=== PATIENT | female | born 1995 | race Caucasian/White ===

== ENCOUNTER 2021-02-28 19:40 | Emergency (ER) | payer OTHER ==
--- NOTE | 2021-02-28 19:50 | ED Physician Documentation ---
History of Present Illness - Stated complaint Stated Complaint: NO TASTE/SMELL, BODYACHES - History obtained from History obtained from: Patient (Starting yesterday she is developed nasal congestion, body aches fatigue and lack of taste and smell. She is not immunized against Covid. No known sick contacts.) Review of Systems Constitutional: reports: Chills, Myalgias, Fatigue Nose: reports: Rhinorrhea / runny nose Cardiac: denies: Chest pain / pressure, Palpitations Respiratory: denies: Dyspnea PD PAST MEDICAL HISTORY - Past Medical History Past Medical History: No - Allergies Allergies/Adverse Reactions: Allergies Allergy/AdvReac Type Severity Reaction Status Date / Time Penicillins Allergy Unknown Verified 02/28/21 19:46 - Living Situation Living Situation: reports: With spouse/s.o. PD ED PE NORMAL - Vitals Vital signs reviewed: Yes - General General: Alert and oriented X 3, No acute distress - Derm Derm: No rash - Neuro Neuro: Alert and oriented X 3, Normal speech Results - Vitals Vitals: Vital Signs - 24 hr 02/28/21 19:46 Temperature 36.9 C Heart Rate 90 Respiratory 16 Rate Blood Pressure 140/80 H O2 Saturation 100 Oxygen O2 Source Room air Departure - Departure Disposition: 01 Home, Self Care Clinical Impression: Viral syndrome Condition: Good Record reviewed to determine appropriate education?: Yes Instructions: ED Viral Syndrome Comments: You have a Covid test pending. You need to self quarantine until the result is done and negative. Do not leave your house. Do not get near anybody. The results should be done in 48 to 72 hours. We will call with a positive result, the fastest way to get a negative result for confirmation though is to go to the hospital website at [email or web address], click on the my [facility] tab and sign up for the patient portal. If any friends or family get sick and would like to have a Covid test done, but do not have signs or symptoms that would necessitate being hospitalized, we encourage testing through our coronavirus swabbing station, call [phone] to schedule an appointment. Forms: Activity restrictions Discharge Date/Time: 02/28/21 19:56
[2021-02-28 19:55] VITALS: BP 140/80
== END 2021-02-28 19:56 | disposition home or self-care (01) ==
LOC: ED 19:40
DX: B34.9 Viral infection, unspecified (principal); Z20.822 Contact with and (suspected) exposure to COVID-19
CPT/HCPCS: 99282; 99283

== ENCOUNTER 2021-03-12 19:07 | Emergency (ER) | payer OTHER ==
[2021-03-12 19:18] VITALS: BP 150/117
--- NOTE | 2021-03-12 20:02 | ED Physician Documentation ---
PD HPI URI - Stated complaint Stated Complaint: COUGH,VOMITING - Chief complaint Chief Complaint: Resp - History obtained from History obtained from: Patient - History of Present Illness Timing - onset: How many weeks ago (2) Timing details: Gradual onset, Intermittant Associated symptoms: Dry cough. No: Fever, Sinus pain, Sore throat Improves by: Nothing Worsened by: Other (no exacerbating factors) Recently seen: Emergency Dept - Additional information Additional information: c/o "lingering cough" (per patient), has had nonproductive cough x 2 weeks. She was T+R from this ED 12 days ago (02/28), had COVID swab which resulted negative. She is NOT COVID vaccinated. Denies fever. Has appointment with PMD upcoming (03/18). Review of Systems Constitutional: denies: Fever, Chills, Sweats Cardiac: reports: Reviewed and negative Respiratory: reports: Cough. denies: Dyspnea, Hemoptysis, Wheezing GI: reports: Reviewed and negative : denies: Now EGA Musculoskeletal: denies: Extremity swelling PD PAST MEDICAL HISTORY - Past Medical History Past Medical History: No - Present Medications Home Medications: Ambulatory Orders Medication Instructions Recorded Confirmed Benzonatate [Tessalon] 200 mg PO TID PRN #14 cap 03/12/21 guaiFENesin/CODEINE [Robitussin AC] 10 ml PO Q6H PRN #100 ml 03/12/21 - Allergies Allergies/Adverse Reactions: Allergies Allergy/AdvReac Type Severity Reaction Status Date / Time Penicillins Allergy Unknown Verified 03/12/21 19:18 - Living Situation Living Arrangement: reports: At home PD ED PE NORMAL - Vitals Vital signs reviewed: Yes - General General: Alert and oriented X 3, No acute distress, Well developed/nourished, Other (occasional dry/nonproductive cough during H+P) - Neck Neck: Supple, no meningeal sign - Cardiac Cardiac: RRR, No murmur, No gallop, No rub - Respiratory Respiratory: No respiratory distress, Clear bilaterally Results - Vitals Vitals: Vital Signs - 24 hr 03/12/21 19:13 Temperature 36.9 C Heart Rate 105 H Respiratory 24 Rate Blood Pressure 150/117 H O2 Saturation 100 Oxygen O2 Source Room air - Rads (name of study) chest xray Radiology: Prelim report reviewed, See rad report PD MEDICAL DECISION MAKING - ED course Complexity details: reviewed results, re-evaluated patient, considered differential, d/w patient ED course: T+R from this ED 12 days ago for URI symptoms, returns due to "lingering cough" (per patient). she is well appearing and lungs are clear, but given that this is a return visit for ongoing symptoms, CXR is reasonable at this point. CXR does not demonstrate concerning process such as focal infiltrate or pneumothorax. COVID swab obtained, results anticipated to return in approximately 2 days. She is given tessalon perles and robitussin AC in ED with prescriptions for same transmitted to [facility] pharmacy in [place]. I am prescribing a short course of short-acting opioid pain medication for this patient. I have reviewed the patients [employer] and no concerning findings were noted. I have discussed that the opioids are for short term therapy only, and will not be refilled from the ED. Departure - Departure Disposition: 01 Home, Self Care Clinical Impression: Upper respiratory tract infection Qualifiers: URI type: unspecified URI Qualified Code(s): J06.9 - Acute upper respiratory infection, unspecified Condition: Good Instructions: ED URI Viral Follow-Up: CHERYL ETIENNE PA-C [Primary Care Provider] - Prescriptions: guaiFENesin/CODEINE [Robitussin AC] 10 ml PO Q6H PRN #100 ml PRN Reason: Cough Benzonatate [Tessalon] 200 mg PO TID PRN #14 cap PRN Reason: Cough Comments: prescriptions for tesselon perles and robitussin AC (robitssun with codeine) have been electronically submitted to [facility] pharmacy in [place] You have a COVID test pending. You need to self-quarantine until the result is done and negative. Do not leave your house. Do not get near anybody. The results should be done in 48 to 72 hours. We will call with a positive result; the fastest way to get a negative result for confirmation though is to go to the hospital website at [email or web address], click on the [email or web address] tab and sign up for the patient portal. If any friends or family get sick and would like to have a COVID test done, but do not have signs or symptoms that would necessitate being hospitalized, we encourage testing through our coronavirus swabbing station, call [phone] to schedule an appointment I am prescribing a short course of narcotic pain medication for you. These are potentially dangerous and addictive medications that should be used carefully. These medications may constipate you. Take an spkm-wao-msqviif stool softener (docusate) twice daily with plenty of water while taking these medications. If you go 24 hours without a bowel movement, take nzgb-oxy-qagllgc miralax, per package instructions. Do not drink or drive while taking these medications. If you received narcotic or sedating medications while in the emergency department, do not drive for 24 hours. Store this medication in a safe, secure place and out of reach of children. It is a violation of federal law to give or sell this medication to another person or to use in a manner other than prescribed. The ED will not refill narcotic prescriptions, including prescriptions lost or stolen. To dispose of unwanted medications: 1. [facility] at [address] in [place] has a medication drop box. They accept prescription medications (in pill form) Monday through Monday 9:00 a.m. to 5:00 p.m. 2. The [facility] [employer] accepts prescription medications (in pill form only) for disposal year round. Call for more information. 3. Contact the [facility] for the next [facility] sponsored prescription drug collection event. , [phone], or [phone]; Discharge Date/Time: 03/12/21 20:59
[2021-03-12] MEDS ORDERED: BENZONATATE 100 MG CAPSULE PO STA (20:17)
[2021-03-12] MEDS ORDERED: guaiFENesin/CODEINE 5 ML UDC PO STA (20:17)
--- NOTE | 2021-03-12 20:48 | XRAY Report ---
PROCEDURE: Chest 2 View X-Ray INDICATIONS: persistent cough TECHNIQUE: 2 view(s) of the chest. COMPARISON: None. FINDINGS: Surgical changes and devices: None. Lungs and pleura: No pleural effusions or pneumothorax. Lungs are clear. Mediastinum: Mediastinal contours are normal. Heart size is normal. Bones and chest wall: No suspicious bony abnormalities. Soft tissues appear unremarkable. IMPRESSION: No acute process. Reviewed by: Jerry Yañez MD on 03/12/2021 8:47 PM PDT Approved by: Jerry Yañez MD on 03/12/2021 8:47 PM PDT Station ID: [id number]
== END 2021-03-12 20:59 | disposition home or self-care (01) ==
LOC: ED 19:07
DX: J06.9 Acute upper respiratory infection, unspecified (principal); Z20.822 Contact with and (suspected) exposure to COVID-19
CPT/HCPCS: 71046; 87635; 99283; 99284; A9270

== ENCOUNTER 2023-03-07 12:21 | Outpatient (CLI) | payer OTHER ==
--- NOTE | 2023-03-07 17:17 | Ultrasound Report ---
PROCEDURE: OB First Trimester w/TV INDICATIONS: POSITIVE TEST OUTSIDE/PRIOR DATING DATA: Last menstrual period (LMP): 01/08/2023. LMP-based estimated date of delivery (YADI): 10/15/2023. First dating scan (date and location): 03/07/2023. Estimated date of delivery (YADI) from first dating scan: 10/15/2023. TECHNIQUE: Real-time scanning was performed of the fetus and maternal pelvic organs, with image documentation. Endovaginal scanning was also performed to better visualize the fetus and maternal ovaries. COMPARISON: None. FINDINGS: Intrauterine gestational sac present. Embryo: There is an IUP with a pole. Based on the crown-rump length, the estimated gestational age is 8 weeks 2 days, corresponding to ultrasound YADI 10/14/2022. Heart rate: heart tone is present with heart rate 158 bpm. Other: No perigestational fluid collection. Measurement variability in dating: +/- 4 weeks by LMP, +/- 7 days by mean sac diameter (use before 6 weeks gestation if crown-rump length not able to be measured), +/- 5 days by crown-rump length (6-12 weeks gestation). Maternal organs: Ovaries appear within normal limits. There is a 1.8 x 1.5 x 1.7 cm cyst in the left ovary, most likely a corpus luteum. IMPRESSION: 1. There is a single living IUP with the estimated gestational age 8 weeks 2 days, corresponding to u ltrasound YADI 10/15/2023. Ultrasound dating concordant with clinical dating. 2. A 1.8 cm cyst in the left ovary, most likely a corpus luteum. Reviewed by: Melania Banks MD on 03/07/2023 5:16 PM PDT Approved by: Melania Banks MD on 03/07/2023 5:16 PM PDT Station ID: [id number]
== END 2023-03-07 12:22 | disposition home or self-care (01) ==
LOC: DI 12:21
PROVIDERS: ATTEND Nurse Practitioner
DX: O34.81 Maternal care for other abnormalities of pelvic organs, first trimester (principal); N83.202 Unspecified ovarian cyst, left side; Z3A.08 8 weeks gestation of pregnancy

== ENCOUNTER 2023-05-03 16:24 | Emergency (ER) | payer OTHER ==
[2023-05-03 16:46] VITALS: BP 100/60; O2SAT 100
--- NOTE | 2023-05-03 18:09 | XRAY Report ---
PROCEDURE: Hand 3 View RT INDICATIONS: Trauma TECHNIQUE: 3 views of the hand(s) acquired. COMPARISON: None. FINDINGS: Bones: No fractures or dislocations. No suspicious bony lesions. Soft tissues: No suspicious soft tissue calcifications or masses. IMPRESSION: No acute bony abnormality. Reviewed by: Ab Salazar on 05/03/2023 6:08 PM [facility] Approved by: Ab Salazar on 05/03/2023 6:08 PM [facility] Station ID: [id number]
--- NOTE | 2023-05-03 18:31 | ED Physician Documentation ---
History of Present Illness - Stated complaint Stated Complaint: DOG BITE R HAND - Chief complaint Chief Complaint: Laceration - History obtained from History obtained from: Patient, Family - History of Present Illness Timing: Today Pain level max: 3 Pain level now: 3 - Additonal information Additional information: Patient is a 27 female who presents to the emergency department with a dog bite to the right hand. It was her dog, dog is a great Ian. She is approximately 16 weeks . There is a puncture wound to the dorsum of the right hand as well as to the palm. Neurovascular intact. No numbness or tingling. No deformity. Review of Systems Constitutional: denies: Fever GI: denies: Vomiting : reports: Now EGA (16 weeks). denies: Vaginal bleeding PD PAST MEDICAL HISTORY - Past Medical History Past Medical History: Yes Psych: ADD/ADHD - Past Surgical History Past Surgical History: No - Present Medications Home Medications: Ambulatory Orders Medication Instructions Recorded Confirmed Amox/Clav 875/125 [Augmentin] 1 tab PO Q12H #14 tablet 05/03/23 Pnv 119/Iron Fum/Folic Acid 1 each PO DAILY 05/03/23 05/03/23 [ 19 Tablet] - Allergies Allergies/Adverse Reactions: Allergies Allergy/AdvReac Type Severity Reaction Status Date / Time clarithromycin Allergy Anaphylaxis Verified 05/03/23 18:27 - Social History Does the pt smoke?: No Smoking Status: Never smoker Does the pt drink ETOH?: No Does the pt have substance abuse?: No - Immunizations Immunizations are current?: Yes - POLST Patient has POLST: No PD ED PE NORMAL - Vitals Vital signs reviewed: Yes - General General: Alert and oriented X 3, No acute distress - HEENT HEENT: Moist mucous membranes - Neck Neck: Supple, no meningeal sign - Cardiac Cardiac: RRR - Respiratory Respiratory: No respiratory distress, Clear bilaterally - Abdomen Abdomen: Soft, Non tender - Derm Derm: Warm and dry - Neuro Neuro: Alert and oriented X 3 - Psych Psych: Normal mood, Normal affect PD ED PE EXPANDED - Extremities ABE UE/Hands Visual: 1 - laceration (1 cm, subcutaneous, neurovascular intact.) 2 - laceration Results - Vitals Vitals: Vital Signs - 24 hr 05/03/23 16:32 Temperature 36.5 C Heart Rate 75 Respiratory 18 Rate Blood Pressure 100/60 O2 Saturation 100 Oxygen O2 Source Room air - Rads (name of study) Right hand x-ray Relevant Findings:: Final report received, See rad report Procedures - Laceration (location) Right hand Length in cm: 1 Wound type: Linear, Clean Neurovascular status: Sensory intact, Motor intact, Vascular intact Tendon involvement: Tendon intact Anesthesia: Lidocaine 1% Wound preparation: Irrigated copiously NS Skin layer closure: Nylon, Interrupted, Size #-0 - enter number (4), Sutures - enter # (2) Other: Patient tolerated well, No complications, Neurovascular intact PD Medical Decision Making - ED course Complexity details: considered differential, d/w patient ED course: 0.3 cm, linear. Laceration on the dorsum of the hand was repaired. Tolerated well. No complications. Tetanus up-to-date. Patient does not want any closure on the palmar wound. The wounds were cleansed and bandaged. Patient initially stated she was allergic to penicillin but clarified with her mother that it was clarithromycin that she is allergic to. Therefore we will place her on Jan. Patient counseled regarding signs and symptoms for which I believe and urgent re-evaluation would be necessary. Patient with good understanding of and agreement to plan and is comfortable going home at this time This document was made in part using voice recognition software. While efforts are made to proofread this document, sound alike and grammatical errors may occur. Departure - Departure Disposition: 01 Home, Self Care Clinical Impression: Dog bite Qualifiers: Encounter type: initial encounter Qualified Code(s): W54.0XXA - Bitten by dog, initial encounter Hand laceration Qualifiers: Encounter type: initial encounter Foreign body presence: without foreign body Laterality: right Qualified Code(s): S61.411A - Laceration without foreign body of right hand, initial encounter Condition: Good Instructions: ED Bite Dog, ED Laceration Hand Follow-Up: your,doctor in 1 week [Other] Prescriptions: Amox/Clav 875/125 [Augmentin] 1 tab PO Q12H #14 tablet Comments: Your prescription was sent to [facility] in [place]. Your x-ray does not show any acute abnormalities today. There is no evidence of fracture. Please follow-up with your doctor for further care. Your sutures should be removed in about 7 days. Take all antibiotics until gone. Forms: PCP List Discharge Date/Time: 05/03/23 18:45
== END 2023-05-03 18:45 | disposition home or self-care (01) ==
LOC: ED 16:24
DX: O9A.212 Injury, poisoning and certain other consequences of external causes complicating pregnancy, second trimester (principal); Z3A.16 16 weeks gestation of pregnancy; S61.451A Open bite of right hand, initial encounter; W54.0XXA Bitten by dog, initial encounter
CPT/HCPCS: 12001; 99283

== ENCOUNTER 2023-05-30 15:47 | Outpatient (CLI) | payer OTHER ==
--- NOTE | 2023-05-31 13:29 | Ultrasound Report ---
PROCEDURE: OB 14+ Weeks INDICATIONS: SUPERVISION OF OUTSIDE/PRIOR DATING DATA: Last menstrual period (LMP): 01/08/2023. LMP-based estimated date of delivery (YADI): 10/15/2023. First dating scan (date and location): 03/07/2023. Estimated date of delivery (YADI) from first dating scan: 10/15/2023. The below data below was generated using the working YADI of 10/15/2023 TECHNIQUE: Real-time scanning was performed of the fetus, with image documentation and biometric measurements. Endovaginal scanning: Not performed. COMPARISON: 03/07/2023 FINDINGS: General: A single living intrauterine gestation is present. Presentation: Vertex, spine up Placenta: Placental position is posterior, without previa. Amniotic fluid index: 13.5 cm, largest pocket is 3.6 cm. Normal for gestational age. heart rate: 148 beats per minute. Maternal cervical canal: Closed and 3.8 cm long; normal length is 2.5 cm or more. biometrics: Biparietal diameter: 4.6 cm, 20 weeks 0 days, 37th percentile Head circumference: 17.7 cm, 20 weeks 1 day, 38th percentile Abdominal circumference: 14.8 cm, 20 weeks 0 days, 36th percentile Femur length: 3.1 cm, 19 weeks 4 days, 18th percentile Estimated gestational age from initial scan: 20 weeks 2 days. Composite gestational age from present scan: 19 weeks 6 days Estimated weight and percentile: 317 g, 23rd percentile Measurement variability for biometric dating: +/- 10 days from 12-20 weeks gestation, +/- 2 weeks fro m 20-30 weeks gestation, +/- 3 weeks for 30 weeks gestation or later. Anatomic survey: Suboptimal images due to position and maternal body habitus. Neuro: Ventricles are non-dilated at less than 10 mm. Cisterna magna is normal at 3-11 mm. Cerebel lum is normal in size and morphology. Nuchal skin fold: Normal at less than 6 mm between 14-20 weeks gestational age. Face: Facial structures are not seen.. Spine: No evidence for spina bifida. Heart: 4-chambered heart is seen. Ventricular outflow tracts are not seen. Diaphragm: Diaphragm is intact. Stomach: Left-sided stomach is present. Kidneys: No hydronephrosis. Normal is less than 5 mm in 2nd trimester, less than 7 mm in 3rd trimester. Cord: 3-vessel cord has orthotopic insertion and marginal placental insertion measuring 1.6 cm away from the lateral edge. Bladder: Normal in size. Extremities: All 4 extremities are difficult to identify given position IMPRESSION: 1. Single living intrauterine with appropriate growth. 2. Estimated weight at the 23rd percentile. 3. Several normal structures were not able to be identified due to position and maternal body h abitus. Recommend follow-up to complete the anatomic survey. 4. Posterior placenta with marginal cord insertion. Reviewed by: Bijal Sullivan MD on 05/31/2023 1:27 PM PST Approved by: Bijal Sullivan MD on 05/31/2023 1:27 PM PST Station ID: [id number]
== END 2023-05-30 15:48 | disposition home or self-care (01) ==
LOC: DI 15:47
PROVIDERS: ATTEND Obstetrics & Gynecology
DX: Z34.92 Encounter for supervision of normal pregnancy, unspecified, second trimester (principal)

== ENCOUNTER 2023-06-07 06:45 | Outpatient (CLI) | payer OTHER ==
--- NOTE | 2023-06-07 11:10 | Ultrasound Report ---
PROCEDURE: OB Follow up INDICATIONS: SUPERVISION OF OUTSIDE/PRIOR DATING DATA: Last menstrual period (LMP): 01/08/2023. LMP-based estimated date of delivery (YADI): 10/15/2023. First dating scan (date and location): 03/07/2023. Estimated date of delivery (YADI) from first dating scan: 10/15/2023. TECHNIQUE: Real-time scanning was performed of the fetus, with image documentation and biometric measurements. COMPARISON: 05/30/2023 FINDINGS: General: A single living intrauterine gestation is present. Presentation: Vertex Placenta: Placental position is posterior, without previa. Amniotic fluid index: 14.1 cm, within normal limits for gestational age. heart rate: 140 beats per minute. Maternal cervical canal: 3.6 cm long; normal length is 2.5 cm or more. Estimated gestational age is 21 weeks and 3 days currently. Marginal cord origin about 1.4 cm from the edge again seen. Extremities are seen. Facial structures, including nose and lips and profile view were seen. The outflow tracts were seen. IMPRESSION: Extremities, facial structures, and cardiac outflow tract are seen. No significant abnor malities identified on routine anatomic survey in conjunction with the prior study. Normal fluid. Reviewed by: Pepito Nick MD on 06/07/2023 11:09 AM PST Approved by: Pepito Nick MD on 06/07/2023 11:09 AM PST Station ID: [id number]
== END 2023-06-07 06:46 | disposition home or self-care (01) ==
LOC: DI 06:45
PROVIDERS: ATTEND Obstetrics & Gynecology
DX: Z34.92 Encounter for supervision of normal pregnancy, unspecified, second trimester (principal)

== ENCOUNTER 2023-07-11 15:07 | Outpatient (CLI) | payer OTHER ==
[2023-07-11 17:31] LABS: HCT - HEMATOCRIT 32.6 % (37.0-47.0); HGB - HEMOGLOBIN 10.8 g/dL (12.0-16.0); MEAN CORPUSCULAR HGB CONC 33.1 g/dL (32.0-36.0); MEAN CORPUSCULAR VOLUME 93.7 fL (81.0-99.0); MEAN PLATELET VOLUME 11.9 fL (7.9-10.8); RED BLOOD COUNT 3.48 10^6/uL (4.20-5.40); RED CELL DISTRIBUTION WIDTH 13.9 % (12.0-15.0); WHITE BLOOD COUNT 13.1 x10^3/uL (4.8-10.8)
== END 2023-07-11 15:08 | disposition home or self-care (01) ==
LOC: LAB.N 15:07
PROVIDERS: ATTEND Obstetrics & Gynecology
DX: Z34.90 Encounter for supervision of normal pregnancy, unspecified, unspecified trimester (principal)
CPT/HCPCS: 36415; 82950; 85027

== ENCOUNTER 2023-07-31 14:57 | Outpatient (CLI) | payer OTHER ==
--- NOTE | 2023-07-31 18:13 | Ultrasound Report ---
PROCEDURE: OB Follow up INDICATIONS: ANOMALY OF PLACENTA OUTSIDE/PRIOR DATING DATA: Last menstrual period (LMP): 01/08/2023. LMP-based estimated date of delivery (YADI): 10/15/2023. First dating scan (date and location): 03/07/2023. Estimated date of delivery (YADI) from first dating scan: 10/15/2023. The below data below was generated using the working YADI of 10/15/2023 TECHNIQUE: Ultrasound of the gravid uterus was performed and recorded. COMPARISON: 06/07/2023 FINDINGS: General: A single live intrauterine gestation is present. Presentation: Vertex Placenta: Placental position is posterior without previa. Cord insertion 2.8 cm from placental edge Amniotic fluid index: 16.5 cm heart rate: 140 beats per minute. Maternal cervical canal: 3.7 cm long; normal length is 2.5 cm or more. biometrics: Biparietal diameter: 7.1 cm, 2007 week 2 day, 15.0 percentile Head circumference: 26.5 cm, 28 week 6 day, 11.8 percentile Abdominal circumference: 23.8 cm, 28 week 1 day, 15.4 percentile Femur length: 5.5 cm, 29 week 1 day, 33.6 percentile Estimated gestational age by working dates: 29 week 1 day Composite gestational age by current ultrasound: 27 week 6 day Estimated weight and percentile: 1240 g, 18th percentile Measurement variability in biometric dating: +/- 10 days from 12-20 weeks gestation, +/- 2 weeks from 20-30 weeks gestation, +/- 3 weeks at 30 weeks gestation or more. Other: Biophysical profile score 8 out of 8. Right ovary was not observed IMPRESSION: Single live intrauterine consistent with 27 week 6 day gestation by current ultrasound, an d 29 week 1 day by dates Reviewed by: Gerber Gayle MD on 07/31/2023 5:12 PM [place] Approved by: Gerber Gayle MD on 07/31/2023 5:12 PM [place] Station ID: [id number]
== END 2023-07-31 14:58 | disposition home or self-care (01) ==
LOC: DI 14:57
PROVIDERS: ATTEND Nurse Practitioner
DX: O43.102 Malformation of placenta, unspecified, second trimester (principal); Z3A.27 27 weeks gestation of pregnancy

== ENCOUNTER 2023-07-31 15:19 | Outpatient (CLI) | payer OTHER ==
--- NOTE | 2023-07-31 18:14 | Ultrasound Report ---
PROCEDURE: OB Biophysical Profile INDICATIONS: ANOMALY OF PLACENTA OUTSIDE/PRIOR DATING DATA: Last menstrual period (LMP): 01/08/2023. LMP-based estimated date of delivery (YADI): 10/15/2023. First dating scan (date and location): 03/07/2023. Estimated date of delivery (YADI) from first dating scan: 10/15/2023. The below data below was generated using the working YADI of 10/15/2023 TECHNIQUE: Ultrasound of the gravid uterus was performed and recorded. COMPARISON: 06/07/2023 FINDINGS: General: A single live intrauterine gestation is present. Presentation: Vertex Placenta: Placental position is posterior without previa. Cord insertion 2.8 cm from placental edge Amniotic fluid index: 16.5 cm heart rate: 140 beats per minute. Maternal cervical canal: 3.7 cm long; normal length is 2.5 cm or more. biometrics: Biparietal diameter: 7.1 cm, 2007 week 2 day, 15.0 percentile Head circumference: 26.5 cm, 28 week 6 day, 11.8 percentile Abdominal circumference: 23.8 cm, 28 week 1 day, 15.4 percentile Femur length: 5.5 cm, 29 week 1 day, 33.6 percentile Estimated gestational age by working dates: 29 week 1 day Composite gestational age by current ultrasound: 27 week 6 day Estimated weight and percentile: 1240 g, 18th percentile Measurement variability in biometric dating: +/- 10 days from 12-20 weeks gestation, +/- 2 weeks from 20-30 weeks gestation, +/- 3 weeks at 30 weeks gestation or more. Other: Biophysical profile score 8 out of 8. Right ovary was not observed IMPRESSION: Single live intrauterine consistent with 27 week 6 day gestation by current ultrasound, an d 29 week 1 day by dates Reviewed by: Gerber Gayle MD on 07/31/2023 5:13 PM [place] Approved by: Gerber Gayle MD on 07/31/2023 5:13 PM [facility] Station ID: [id number]
== END 2023-07-31 15:20 | disposition home or self-care (01) ==
LOC: DI 15:19
PROVIDERS: ATTEND Nurse Practitioner
DX: O43.102 Malformation of placenta, unspecified, second trimester (principal); Z3A.27 27 weeks gestation of pregnancy

== ENCOUNTER 2023-08-17 10:23 | Outpatient (CLI) | payer OTHER ==
[2023-08-17 11:10] VITALS: BP 121/82
[2023-08-17 12:08] LABS: BILIRUBIN,URINE NEGATIVE (NEGATIVE); CLARITY,URINE CLEAR (CLEAR); GLUCOSE, URINE (UA) NEGATIVE (NEGATIVE); KETONES,URINE (UA) NEGATIVE (NEGATIVE); LEUKOCYTE ESTERASE, URINE NEGATIVE (NEGATIVE); NITRITE,URINE NEGATIVE (NEGATIVE); OCCULT BLOOD,URINE TRACE-LYSE (NEGATIVE); PROTEIN,URINE NEGATIVE (NEGATIVE); UROBILINOGEN,URINE 0.2 (NORMAL) E.U./dL (NORMAL)
--- NOTE | 2023-08-17 12:16 | PROVIDER PROGRESS NOTE ---
- HPI Chief Complaint: Labor Current : Vital Signs Current EDU 10/15/23 Gestation 31 Weeks and 4 Days 1 Para 0 Vital Signs Temperature 98.2 F 08/17/23 10:37 Heart Rate 63 08/17/23 10:37 Respiratory Rate 16 08/17/23 10:37 Blood Pressure 121/82 H 08/17/23 10:37 Temperature 98.2 F 08/17/23 10:37 Heart Rate 63 08/17/23 10:37 Respiratory Rate 16 08/17/23 10:37 Blood Pressure 121/82 H 08/17/23 10:37 O2 Saturation If not protocol: Oxygen Flow, liters/minute - Procedures OB Procedure Performed: NST Diagnosis/Indication for NST: labor - Plan Plan: Patient is a 28-year-old G1, P0 at 39 weeks 4 days gestation who presents with low pelvic cramping. She says this started earlier today and feels it mostly in her groin/vagina. She is unable to complete describes what she is feeling. Physical Exam Constitutional: alert, no acute distress, well hydrated, well developed, well nourished, appropriate dress. Cardiovascular: Regular rate and rhythm. Respiratory: no respiratory distress. Abdomen: nondistended, nontender, no guarding. Psych: affect and mood appropriate, normal interaction, good eye contact. NST Performed 08/17/2023 NST Read 08/17/2023 FHT: 125 bpm baseline, moderate variability, accelerations present, no decelerations. Reactive NST [place]: Irritable False labor -Patient observed and checked and had no cervical change. Patient was discharged with labor precautions.
[2023-08-17 12:34] LABS: BACTERIA,URINE Few /HPF (None Seen); RBC,URINE 0-5 /HPF (0-5); SQUAMOUS EPITHELIAL CELL,UR FEW Squamous (<= Few); WBC,URINE 0-3 /HPF (0-5)
[2023-08-17 15:07] LABS: BACTERIAL VAGINOSIS DNA NEGATIVE (NEGATIVE); CANDIDA GLABRATA DNA NEGATIVE (NEGATIVE); CANDIDA GROUP DNA NEGATIVE (NEGATIVE); CANDIDA KRUSEI DNA NEGATIVE (NEGATIVE); TRICHOMONAS VAGINALIS DNA NEGATIVE (NEGATIVE)
== END 2023-08-17 13:56 | disposition home or self-care (01) ==
LOC: WFO 10:23 → FBP 10:24 → WFO 13:56
PROVIDERS: ATTEND Obstetrics & Gynecology
DX: O47.03 False labor before 37 completed weeks of gestation, third trimester (principal); Z3A.31 31 weeks gestation of pregnancy
CPT/HCPCS: 59025; 81001; 81514; 87086; 99215

== ENCOUNTER 2023-09-13 19:21 | Outpatient (CLI) | payer OTHER ==
[2023-09-13 19:39] VITALS: BP 110/70; O2SAT 98
[2023-09-13 20:05] LABS: BILIRUBIN,URINE NEGATIVE (NEGATIVE); GLUCOSE, URINE (UA) NEGATIVE (NEGATIVE); KETONES,URINE (UA) NEGATIVE (NEGATIVE); LEUKOCYTE ESTERASE, URINE NEGATIVE (NEGATIVE); NITRITE,URINE NEGATIVE (NEGATIVE); OCCULT BLOOD,URINE NEGATIVE (NEGATIVE); PROTEIN,URINE NEGATIVE (NEGATIVE); UROBILINOGEN,URINE 0.2 (NORMAL) E.U./dL (NORMAL)
[2023-09-13 20:06] LABS: CLARITY,URINE HAZY (CLEAR)
[2023-09-13 20:20] LABS: AMORPHOUS SEDIMENT,UR Few /LPF; BACTERIA,URINE Moderate /HPF (None Seen); RBC,URINE 0-5 /HPF (0-5); SQUAMOUS EPITHELIAL CELL,UR MOD Squamous (<= Few); WBC,URINE 0-3 /HPF (0-5)
--- NOTE | 2023-09-13 20:36 | PROVIDER PROGRESS NOTE ---
- HPI Chief Complaint: Labor Current : Current EDU 10/15/23 Gestation 35 Weeks and 3 Days 1 Para 0 Vital Signs Temperature 98.3 F 09/13/23 19:35 Heart Rate 82 09/13/23 19:35 Respiratory Rate 16 09/13/23 19:35 Blood Pressure 110/70 09/13/23 19:35 O2 Saturation 98 09/13/23 19:35 Temperature 98.6 F 09/13/23 19:36 Heart Rate 82 09/13/23 19:36 Respiratory Rate 16 09/13/23 19:36 Blood Pressure 110/70 09/13/23 19:36 O2 Saturation 98 09/13/23 19:35 If not protocol: Oxygen Flow, liters/minute feeling some sharp pain from vagina into her back. also some cramps. otherwise feels pretty well. ultrasound tomorrow to check growth, fluid, placenta as fundal height has been 29 cm for last 3 visits. asked many questions about this. prior uls showed a marginal cord insertion. here for contractions 08/17 and told she was 1 cm. - Exam Vitals stable. O2 sats good. abdomen soft not tender. - Procedures OB Procedure Performed: NST Diagnosis/Indication for NST: Other ( contractions) NST Procedure: NST Procedure Start Date 09/13/23 Start Time 19:35 Stop Time 20:26 Vibroacoustic Stimulation Used No Patient States Movement Yes Service Date of procedure: 09/13/23 Procedure Details: Reactive for of 32 weeks gestation or more. NST tracing contains at least two heart rate accelerations that are at least 15 beats per minute above the baseline rate and lasting at least 15 seconds from onset to return to baseline within a twenty minute period. Findings: reactive nst - Plan Plan: Urine neg. ultrasound is able to do her scan now, while they are here. discharge now and go to s. does not seem to be in labor at all. reassured.
== END 2023-09-13 20:40 | disposition home or self-care (01) ==
LOC: WFO 19:21 → FBP 19:22 → WFO 20:40
PROVIDERS: ATTEND Obstetrics & Gynecology
DX: O47.03 False labor before 37 completed weeks of gestation, third trimester (principal); O43.103 Malformation of placenta, unspecified, third trimester; Z3A.35 35 weeks gestation of pregnancy
CPT/HCPCS: 59025; 81001; 87086; 99212

== ENCOUNTER 2023-09-13 20:40 | Outpatient (CLI) | payer OTHER ==
--- NOTE | 2023-09-18 17:17 | Ultrasound Report ---
PROCEDURE: OB Follow up INDICATIONS: ANOMALY OF PLACENTA OUTSIDE/PRIOR DATING DATA: Last menstrual period (LMP): 01/08/2023. LMP-based estimated date of delivery (YADI): 10/23/2023. First dating scan (date and location): 03/07/2023. Estimated date of delivery (YADI) from first dating scan: 10/15/2023. The below data below was generated using the clinical/ultrasound YADI of 10/15/2023 TECHNIQUE: Real-time scanning was performed of the fetus, with image documentation and biometric measurements. COMPARISON: OB ultrasound 07/31/2023 FINDINGS: General: A single living intrauterine gestation is present. Presentation: Vertex Placenta: Placental position is posterior, without previa. Placental cord insertion is 2.9 cm from the placental tip. This is compared to 2.8 cm from prior exam. Amniotic fluid index: 14.9 cm, within normal limits for gestational age. heart rate: 135 beats per minute. Maternal cervical canal: Not visualized biometrics: Biparietal diameter: 8.3 cm 33 weeks 4 days 9th percentile Head circumference: 31.2 cm 35 weeks 5 days 25th percentile Abdominal circumference: 31.2 cm 35 weeks 1 day 51st percentile Femur length: 6.6 cm 34 weeks 0 days 11th percentile Estimated gestational age from initial scan: 34 weeks 3 days Composite gestational age from present scan: 34 weeks 4 days Estimated weight and percentile: 250 g 29th percentile Measurement variability in biometric dating: +/- 10 days from 12-20 weeks gestation, +/- 2 weeks from 20-30 weeks gestation, +/- 3 weeks at 30 weeks gestation or more. Other: Not applicable. IMPRESSION: Single live intrauterine with gestational age today of 34 weeks 4 days. Placental cord insertion is 2.9 cm from the placental tip, compared to 0.8 cm on prior exam. Reviewed by: Sierra Frederick MD on 09/18/2023 5:15 PM PDT Approved by: Sierra Frederick MD on 09/18/2023 5:15 PM PDT Station ID: [id number]
== END 2023-09-13 20:41 | disposition home or self-care (01) ==
LOC: DI 20:40
PROVIDERS: ATTEND Nurse Practitioner
DX: O43.103 Malformation of placenta, unspecified, third trimester (principal); Z3A.34 34 weeks gestation of pregnancy

== ENCOUNTER 2023-09-18 14:36 | Outpatient (CLI) | payer OTHER | END 2023-09-18 23:59 | disposition home or self-care (01) | LOC: DI 14:36 | PROVIDERS: ATTEND Nurse Practitioner | DX: Z36.85 Encounter for antenatal screening for Streptococcus B (principal) | CPT/HCPCS: 87797 ==

== ENCOUNTER 2023-10-02 08:00 | Outpatient (CLI) | payer OTHER ==
[2023-10-02 14:55] LABS: RUPTURE OF MEMBRANES PLUS NEGATIVE (NEGATIVE)
== END 2023-10-02 23:59 | disposition home or self-care (01) ==
LOC: LAB.WC 08:00
PROVIDERS: ATTEND Obstetrics & Gynecology
DX: O42.90 Premature rupture of membranes, unspecified as to length of time between rupture and onset of labor, unspecified weeks of gestation (principal)
CPT/HCPCS: 84112

== ENCOUNTER 2023-10-06 20:18 | Outpatient (CLI) | payer OTHER ==
[2023-10-06 20:39] VITALS: BP 109/64
--- NOTE | 2023-10-06 22:14 | PROCEDURE REPORT ---
- HPI Diagnosis/Indication for NST: Other (Contractions) Vital Signs Temperature 97.9 F 10/06/23 20:32 Heart Rate 80 10/06/23 20:32 Respiratory Rate 17 10/06/23 20:32 Blood Pressure 109/64 10/06/23 20:32 Temperature 97.9 F 10/06/23 20:32 Heart Rate 80 10/06/23 20:32 Respiratory Rate 17 10/06/23 20:32 Blood Pressure 109/64 10/06/23 20:32 O2 Saturation If not protocol: Oxygen Flow, liters/minute - NST Procedure NST Procedure Start Time 19:35 Stop Time 20:26 120s bpm baseline, + accel, - decel, mod variability [place] quiet - Results and Plan Findings/Impression: Reactive, Cat 1
== END 2023-10-06 22:20 | disposition home or self-care (01) ==
LOC: WFO 20:18 → FBP 20:20 → WFO 22:20
PROVIDERS: ATTEND Obstetrics & Gynecology
DX: O47.1 False labor at or after 37 completed weeks of gestation (principal); Z3A.38 38 weeks gestation of pregnancy
CPT/HCPCS: 59025; 99214

== ENCOUNTER 2023-10-12 16:58 | Inpatient (IN) | payer OTHER ==
[2023-10-12] MEDS ORDERED: miSOPROStoL 100 MCG TABLET ONE (18:26)
[2023-10-12 20:15] LABS: BASOPHILS # (AUTO) 0.1 10^3/uL (0.0-0.1); BASOPHILS % (AUTO) 0.7 %; EOSINOPHILS # (AUTO) 0.3 10^3/uL (0.0-0.7); EOSINOPHILS % (AUTO) 2.4 %; HCT - HEMATOCRIT 34.5 % (37.0-47.0); HGB - HEMOGLOBIN 11.3 g/dL (12.0-16.0); LYMPHOCYTES # (AUTO) 2.5 10^3/uL (1.5-3.5); LYMPHOCYTES % (AUTO) 19.9 %; MEAN CORPUSCULAR HEMOGLOBIN 30.1 pg (27.0-31.0); MEAN CORPUSCULAR HGB CONC 32.8 g/dL (32.0-36.0); MEAN CORPUSCULAR VOLUME 91.8 fL (81.0-99.0); MEAN PLATELET VOLUME 13.1 fL (7.9-10.8); NEUTROPHILS # (AUTO) 8.4 10^3/uL (1.5-6.6); NEUTROPHILS % (AUTO) 68.3 %; PLT - PLATELET COUNT 154 10^3/uL (130-450); RED BLOOD COUNT 3.76 10^6/uL (4.20-5.40); RED CELL DISTRIBUTION WIDTH 13.4 % (12.0-15.0); WHITE BLOOD COUNT 12.3 x10^3/uL (4.8-10.8)
[2023-10-12] MEDS ORDERED: lidocaine 1% 20 ML MDV ID PRN (21:00)
[2023-10-12] MEDS ORDERED: ONDANSETRON ODT 4 MG TABLET TL PRN (21:00)
[2023-10-12] MEDS ORDERED: miSOPROStoL 200 MCG TABLET BC PRN (21:00)
[2023-10-12] MEDS ORDERED: ACETAMINOPHEN 500 MG TABLET PO PRN (21:00)
[2023-10-12] MEDS ORDERED: OXYTOCIN 10 UNIT/ML VIAL IM PRN (21:00)
[2023-10-12] MEDS ORDERED: fentaNYL 100 MCG/2 ML VIAL IVP PRN (21:00)
[2023-10-12] MEDS ORDERED: METHYLERGONOVINE 0.2 MG/ML VIAL IM PRN (21:00)
[2023-10-12] MEDS ORDERED: TERBUTALINE 1 MG/ML VIAL SUBQ PRN (21:00)
[2023-10-12] MEDS ORDERED: miSOPROStoL 200 MCG TABLET PR PRN (21:00)
[2023-10-12] MEDS ORDERED: LACTATED RINGERS 1,000 ML IV PRN (21:00)
[2023-10-12] MEDS ORDERED: SODIUM CHLORIDE FLUSH 0.9% 10 ML SYRINGE IVP SCH (21:00)
[2023-10-12] MEDS ORDERED: TRANEXAMIC ACID IN NACL 1,000 MG/100 ML BAG IV PRN (21:00)
[2023-10-12] MEDS ORDERED: NIFEdipine 10 MG CAPSULE PO PRN (21:00)
[2023-10-12] MEDS ORDERED: SODIUM CHLORIDE FLUSH 0.9% 10 ML SYRINGE IVP PRN (21:00)
[2023-10-12] MEDS ORDERED: LABETALOL 20 MG/4 ML SYRINGE IVP PRN ×3 (21:00)
[2023-10-12] MEDS ORDERED: hydrALAZINE INJ 20 MG/ML VIAL IVP PRN ×2 (21:00)
[2023-10-12] MEDS: LACTATED RINGERS 1,000 ML IV SCH (23:45)
[2023-10-13] MEDS: CALCIUM CARBONATE CHEW 500 MG TABLET PO PRN (00:08)
[2023-10-13] MEDS: miSOPROStoL 100 MCG TABLET VG SCH (00:55)
--- NOTE | 2023-10-13 01:21 | HISTORY & PHYSICAL EXAMINATION ---
Admit History - : 1 Parity: 0 Smoking Status: Never smoker - Mother's Labs Mother's Blood Type: positive: O Mother's RH: positive: Positive GBS: positive: Group B Step Negative Rubella Status: positive: Immune - Other Maternal History Other Maternal History: HPI: This 28yo @ 39+4weeks by LMP and confirmed by 8+2 week ultrasound, presents to [facility] for elective induction of labor. Upon arrival her cervix was 2.5/70/-2, vertex with intact membranes. Low score 7. We cervical ripening vs induction management options at length. Utilizing shared decision making, patient opted for cervical ripening, and we discussed plan of care to begin 25mcg vaginal misoprostol q 4 hours. She has been a patient of [facility] for the duration of her . Her 05/30/23 anatomy scan was significant for a posterior placenta without previa, but a marginal cord insertion attached 1.4cm from placental edge. F/u ultrasounds: 29+1 weeks: EFW 18%, cord insertion 2.8cm from placenta edge, 36weeks EFW 29%, GALLO 14.9, placenta cord insertion 2.9cm from placenta edge. Dating criteria: LMP: 01/08/2023 ---> YADI by LMP 10/14/2022 Initial u/s @ 8+2 wks dates with YADI [id number] u/s EFW 29% (2904g) GALLO 14.9, placenta cord insertion 2.9cm OB Hx: Uneventful course. marginal cord insertion (resolved). Medical Hx: ADHD, obsessive thoughts Surgical Hx: N/A (wisdom teeth) Social Hx: No tobacco, marijuana, or illicit substance use. No domestic violence history or concerns. Worked full time babysitter prior to reaching term . is [employer]. Family Hx: Mother: a severe syncopal episode post her vaginal delivery; Later she was diagnosed with fibromuscular dysplasia and a cerebrovascular accident stroke in her mid-30s. Allergies: Penicillin, Biaxin, clarithromycin Medications: Tums, vitamin Course: O positive, antibody negative Rubella immune, Varicella Immune Hep B neg, Hep C neg HIV non-reactive, RPR non-reactive GCCT negative Genetic screening: Declined. 1 hr GCCT: 78 Tdap: Declined GBS: neg Physical exam: Abdomen gravid, soft, nontender. EFW 3400g FHR baseline 150, moderate variability, + accelerations, no decelerations Not [place] SVE 2.5/70/-2, vertex, membranes intact Bilateral LE's no edema Mood is good. Assessment: 28 yo @ 39.4 weeks gestation by LMP (confirmed by u/s) Term gestation FHR Cat I GBS NEG Plan: Admit to [facility] for cervical ripening to be followed by likely Induction of labor with oxytocin Continuous monitoring. Anesthesia consult PRN for maternal epidural request Anticipate . - NST Procedure NST Procedure Start Time 20:28 Stop Time 21:07 Meds/Allgy - Home Medications Home Medications: Ambulatory Orders Medication Instructions Recorded Confirmed Amox/Clav 875/125 [Augmentin] 1 tab PO Q12H #14 tablet 05/03/23 Pnv 119/Iron Fum/Folic Acid 1 each PO DAILY 05/03/23 05/03/23 [ 19 Tablet] - Allergies Allergies/Adverse Reactions: Allergies Allergy/AdvReac Type Severity Reaction Status Date / Time clarithromycin Allergy Anaphylaxis Verified 05/03/23 18:27 Plan for Labor - Plan For Labor I expect patient to be DC'd or transferred within 96 hours.: Yes
--- NOTE | 2023-10-13 03:39 | PROVIDER PROGRESS NOTE ---
Labor Progress Note - Uterine Monitoring Uterine Monitoring Mode: positive: External toco Contraction Frequency (min/apart): Irregular - Monitoring Monitor Mode: positive: External ultrasound Heart Rate Baseline: 125 Heart Rate Variability: positive: Moderate (6-25 bmp) Accelerations: positive: Present, 15x15 Decelerations: positive: None - Vaginal Exam Dilation (in cm): 4 Effacement (%): 90 Station: 2 - Labor Progress Note Labor Progress Note/Additional Text: Patient received two doses of misoprostol. Desires amniotomy and discussed risks and benefits. Performed without issue with clear fluid. Received epidural for pain control and very comfortable..
[2023-10-13] MEDS ORDERED: ROPIVACAINE 0.2% 200 MG/100 ML BAG EP ONE (03:40)
[2023-10-13] MEDS ORDERED: LIDOCAINE 2%-EPI 1:100000 20 ML MDV ONE (03:40)
[2023-10-13] MEDS ORDERED: diphenhydrAMINE INJ 50 MG/ML VIAL IVP PRN (04:20)
[2023-10-13] MEDS ORDERED: METOCLOPRAMIDE 10 MG/2 ML VIAL IVP PRN (04:20)
[2023-10-13] MEDS ORDERED: ROPIVACAINE 0.2% 200 MG/100 ML BAG EP PRN (04:20)
[2023-10-13] MEDS ORDERED: ONDANSETRON 4 MG/2 ML VIAL IVP PRN ×2 (04:20→07:27)
[2023-10-13] MEDS ORDERED: NALBUPHINE 10 MG/ML AMP IVP PRN (04:20)
[2023-10-13] MEDS ORDERED: ePHEDrine 50 MG/ML VIAL IVP PRN (04:20)
[2023-10-13] MEDS ORDERED: NALOXONE 0.4 MG/ML VIAL IVP PRN (04:20)
--- NOTE | 2023-10-13 04:20 | ANESTHESIA ---
Pre-Anesthesia VS, & Labs - Diagnosis labor pain - Procedure labor epidural Vital Signs: Temp Pulse Resp BP Pulse Ox O2 Flow Rate 36.8 C 10/13/23 02:19 Height: 5 ft 3 in Weight (kg): 84.822 kg Body Mass Index: 33.1 BMI Classification: Obese - NPO Other - Is Patient ?: Yes - Lab Results Current Lab Results: Laboratory Tests 10/12/23 17:35: Blood Type O POSITIVE, Antibody Screen NEGATIVE 10/12/23 17:35: WBC 12.3 H, RBC 3.76 L, Hgb 11.3 L, Hct 34.5 L, MCV 91.8, MCH 30.1, MCHC 32.8, RDW 13.4, Plt Count 154, MPV 13.1 H, Neut # (Auto) 8.4 H, Lymph # (Auto) 2.5, [place] # (Auto) 1.0, Eos # (Auto) 0.3, Baso # (Auto) 0.1, Absolute Nucleated RBC 0.00, Nucleated RBC % 0.0 Fish Bones: 10/12/23 17:35 Home Medications and Allergies Active Medications Acetaminophen (Acetaminophen 500 Mg Tablet) 1,000 mg PO Q6HR PRN PRN Reason: Pain or Fever > 38C (100.4F) Calcium Carbonate/Glycine (Calcium Carbonate Chew 500 Mg Tablet) 500 mg PO BID PRN PRN Reason: Heartburn Last Admin: 10/13/23 00:08 Dose: 500 mg Fentanyl (Fentanyl 100 Mcg/2 Ml Vial) 50 mcg IVP Q1H PRN PRN Reason: Severe Pain (score 7-10) Hydralazine HCl (Hydralazine Inj 20 Mg/Ml Vial) 10 mg IVP .ONCE PRN; Protocol PRN Reason: SBP> or= 160 OR DBP> or= 110 Hydralazine HCl (Hydralazine Inj 20 Mg/Ml Vial) 5 - 10 mg IVP Q20M PRN; Protocol PRN Reason: SBP> or= 160 OR DBP> or= 110 Oxytocin/Sodium Chloride (Pitocin/Sodium Chloride) 500 mls @ 999 mls/hr IV PRN PRN; Protocol PRN Reason: POST- HEMORR PREVENTION Tranexamic Acid (Tranexamic 1,000 Mg/100ml-Nacl) 1,000 mg in 100 mls @ 600 mls/hr IV Q30M PRN PRN Reason: EBL >1200mL and within 3hr Lactated Ringer's (Lr) 1,000 mls @ 125 mls/hr IV .Q8H [facility] Last Admin: 10/12/23 23:45 Dose: 125 mls/hr Lactated Ringer's (Lr) 1,000 mls @ 999 mls/hr IV PRN PRN PRN Reason: PER PHYSICIAN ORDER Labetalol HCl (Labetalol 20 Mg/4 Ml Syringe) 20 mg IVP .ONCE PRN; Protocol PRN Reason: SBP> or= 160 OR DBP> or= 110 Labetalol HCl (Labetalol 20 Mg/4 Ml Syringe) 20 - 80 mg IVP Q10M PRN; Protocol PRN Reason: SBP> or= 160 OR DBP> or= 110 Labetalol HCl (Labetalol 20 Mg/4 Ml Syringe) 20 - 40 mg IVP Q10M PRN; Protocol PRN Reason: SBP> or= 160 OR DBP> or= 110 Lidocaine HCl (Lidocaine 1% 20 Ml Mdv) 20 ml ID .ONCE PRN PRN Reason: PERINEAL REPAIR Stop: 10/15/23 21:00 Methylergonovine Maleate (Methylergonovine 0.2 Mg/Ml Vial) 0.2 mg IM .ONCE PRN PRN Reason: Hemorrhage Misoprostol (Misoprostol 200 Mcg Tablet) 600 mcg BC .ONCE PRN PRN Reason: Hemorrhage Misoprostol (Misoprostol 200 Mcg Tablet) 800 mcg MA .ONCE PRN PRN Reason: Hemorrhage Misoprostol (Misoprostol 100 Mcg Tablet) 25 mcg VG Q4H [facility] Last Admin: 10/13/23 00:55 Dose: 25 mcg Nifedipine (Nifedipine 10 Mg Capsule) 10 - 20 mg PO Q20M PRN; Protocol PRN Reason: SBP> or= 160 OR DBP> or= 110 Ondansetron HCl (Ondansetron Odt 4 Mg Tablet) 4 mg TL Q6HR PRN PRN Reason: Nausea / Vomiting Oxytocin (Oxytocin 10 Unit/Ml Vial) 10 unit IM .ONCE PRN PRN Reason: Step One if no IV access. Sodium Chloride (Sodium Chloride Flush 0.9% 10 Ml Syringe) 10 ml IVP Q8H [facility] Sodium Chloride (Sodium Chloride Flush 0.9% 10 Ml Syringe) 10 ml IVP PRN PRN PRN Reason: NEEDED PER PROVIDER ORDERS Terbutaline Sulfate (Terbutaline 1 Mg/Ml Vial) 0.25 mg SUBQ .ONCE PRN PRN Reason: Tachystole Pnv 119/Iron Fum/Folic Acid [ 19 Tablet] 1 each PO DAILY 05/03/23 Allergies/Adverse Reactions: Allergies Allergy/AdvReac Type Severity Reaction Status Date / Time clarithromycin Allergy Anaphylaxis Verified 05/03/23 18:27 Anes History & Medical History - Anesthetic History Anesthesia Complications: reports: No previous complications Family history of Anesthesia Complications: Denies Family history of Malignant Hyperthermia: Denies - Medical History Cardiovascular: reports: None Pulmonary: reports: None Gastrointestinal: reports: None Urinary: reports: None Neuro: reports: None Musculoskeletal: reports: None Endocrine/Autoimmune: reports: None Blood Disorders: reports: None Skin: reports: None Smoking Status: Never smoker Psychosocial: reports: No issues indicated - Obstetrical History : 1 Parity: 0 Exam General: Alert, Oriented x3, Cooperative Dental: WNL Mouth Openin Fingerbreadth Neck Mobility: Normal Mallampati classification: I Thyromental Distance: 4-6 cm Respiratory: Lungs clear Cardiovascular: Regular rate Plan Anesthesia Type: Epidural Consent for Procedure(s) Verified and Reviewed: Yes Code Status: Attempt Resuscitation ASA classification: 2-Mild systemic disease Is this case an emergency?: No
[2023-10-13] MEDS: OXYTOCIN/SODIUM CHLORIDE 500 ML IV PRN (05:38)
[2023-10-13] MEDS ORDERED: SIMETHICONE CHEW 80 MG TABLET PO PRN (07:27)
[2023-10-13] MEDS ORDERED: CALCIUM CARBONATE CHEW 500 MG TABLET PO PRN (07:27)
--- NOTE | 2023-10-13 07:31 | DELIVERY NOTE ---
Delivery Note - Labor Labor: positive: Augmented by ARM - Cervical Ripening Method Cervical Ripening Method: positive: Misoprostil - Anesthetic Anesthetic Type: - Amniotic Fluid Description Amniotic Fluid Description: positive: Clear - Laceration Laceration: positive: 2nd degree - Suture Suture Type: positive: Vicryl Suture Size: positive: 3-0 - Delivery Outcome Delivery Outcome: positive: Livebirth - [place] : positive: Placed in direct skin contact with mother [place] sex: positive: Female - Cord Cord: positive: 3 vessels - Placenta Placenta: positive: Intact - Estimated Blood Loss Estimated Blood Loss (in cc): 250 - Post Delivery Events Post Delivery Events: positive: No post delivery events - Delivery Comments (Free Text/Narrative) Delivery Comments (Free Text/Narrative): This- 28yo year-old, G 1 P 0 . @ 39+5 gestation by LMP and confirmed by 8+2 week ultrasound presented @ 17:00 on 10/12/2023 for elective IOL. Cervix was 2.5/70/- 2and Vertex. GBS negative. FHR pattern demonstrated 150 baseline in a category I. Progressed quickly from 4cm to complete. Epidural placed upon maternal request. AROM occurred @ 0423 Complete @0544, pushing began @ 0608 : Normal spontaneous vaginal delivery of a viable female on 10/13/2023 @0630 . The was placed on maternal abdomen, stimulated, dried and placed skin to skin. Apgars 7m@ 1 min, and 9 @ 5 minutes. Pitocin admi nistered via IV for hemostasis. The umbilical cord was allowed to stop pulsating at which time it was doubly clamped by delivering provider and cut by FOB. 3VC. Cord blood was obtained. Fundal massage and gently cord traction applied for active management of the third stage, placenta delivered spontaneously and intact @0630. EBL 250cc. Uterine fundus firm and there is no excessive bleeding. The perineum, vagina and cervix were inspected. 2 perineal lac extending and bifurcating to vagina. Repaired under epidural anesthesia 3-0 vicryl rapide, repaired in standards fashion under sterile conditions. Vaginal and rectal examination following the repair was done. Tissues well approximated. Skin to skin initiated. Family bonding well. Both mother and baby are in stable condition.
[2023-10-13] MEDS ORDERED: LACTATED RINGERS 1,000 ML IV SCH (08:00)
[2023-10-13] MEDS: DOCUSATE SODIUM 100 MG CAPSULE PO PRN (09:33)
[2023-10-13] MEDS: ACETAMINOPHEN 500 MG TABLET PO SCH (09:33)
[2023-10-13] MEDS: IBUPROFEN 600 MG TABLET PO SCH (09:34)
--- NOTE | 2023-10-13 10:29 | PHARMACY PROGRESS NOTE ---
- Best Possible Medication History Admit Date and Time: 10/13/23 0740 Processed by: Pharmacy As the person ultimately responsible for medication therapy, providers are able to order a medication from an existing home medication list in [facility] via the "Reconcile Routine" prior to Confirmation of that medication by application support administrator. Such practice is discouraged except when the physician, in their clinical judgment, deems that a medical need exists for a medication without regard to previous use.
[2023-10-14 08:20] VITALS: BP 105/56; O2SAT 97
--- NOTE | 2023-10-14 10:32 | Discharge Plan ---
Discharge Plan Problem Reviewed?: Yes Disposition: Home, Self Care Condition: Good Diet: Regular Activity Restrictions: Activity as Tolerated Shower Restrictions: No Driving Restrictions: Yes (Drive when comfortable, without pain medications) Weight Bearing: Full Weight Instruction Topics: Vaginal After Additional Instructions or Follow Up instructions: Follow up 10/19/23 at [facility] No Smoking: If you smoke, Please STOP! Call for help. Follow-up with: Carin Obregon ARNP [Provider Admit Priv/Credential] -
--- NOTE | 2023-10-14 10:49 | DISCHARGE SUMMARY ---
Discharge Summary Admit Date: 10/13/23 Discharge Date: 10/14/23 Discharging Provider: Amber Martinez DO Code Status: Attempt Resuscitation Condition at Discharge: Good Discharge Disposition: 01 Home, Self Care Discharge Facility Name: [facility] - DIAGNOSES Admission Diagnoses: 28yo admitted 10/13/23 at 39.5w for elective IOL. - HPI History of Present Illness: 28yo admitted 10/13/23 at 39.5w for elective IOL, care uncomplicated. - HOSPITAL COURSE Hospital Course: 28yo admitted 10/13/23 at 39.5w for elective IOL. She was induced with misoprostol 25mcg PV x2. She received epidural. AROM performed. Uncomplicated . Second degree laceration repaired. Recovering well. She feels ready to go home PPD#1. Comfortable. Appropriate lochia. Ambulating. Voiding. Positive BM. well. Mood is good. care reviewed, all questions answered. - ALLERGIES Allergies/Adverse Reactions: Allergies Allergy/AdvReac Type Severity Reaction Status Date / Time clarithromycin Allergy Anaphylaxis Verified 05/03/23 18:27 - MEDICATIONS Home Medications: Ambulatory Orders Medication Instructions Recorded Confirmed Pnv 119/Iron Fum/Folic Acid 1 each PO DAILY 05/03/23 10/13/23 [ 19 Tablet] Famotidine [Pepcid] 20 mg PO BID 10/13/23 10/13/23 - PHYSICAL EXAM AT DISCHARGE General Appearance: positive: No acute distress Respiratory: positive: No respiratory distress Cardiovascular: positive: Other (Regular rate) Abdomen: positive: Non-tender Skin: positive: Color nml Extremities: positive: Non-tender Neurologic/Psychiatric: positive: Oriented x3 - LABS Result Diagrams: 10/12/23 17:35 - FOLLOW UP Follow Up: [facility] 10/19/23 - TIME SPENT Time Spent in Discharge (Minutes): 25
--- NOTE | 2023-10-14 14:01 | Labor Flowsheet ---
Labor Flowsheet Datetime Report Generated by CPN: 10/14/2023 14:01 Datetime: 10/14/2023 07:35 VITAL SIGNS NBP Sys/Carito/Mean (mmHg): 103 : 56 : 67 Pulse: 67 Datetime: 10/13/2023 08:08 Membranes Ruptured Date/Time: 10/13/2023 04:23 Datetime: 10/13/2023 06:30 Stage of : Recovery Datetime: 10/13/2023 06:00 LaborFlag: Labor Datetime: 10/13/2023 05:57 Comments: Muse out Datetime: 10/13/2023 05:44 Provider Reviewed Strip: Yes COMMUNICATION Communication: Call/Page Placed to Provider Provider Notified (Name): qamar Notification Reason: Status Update Datetime: 10/13/2023 04:23 VAGINAL EXAM Dilatation (cm): 4.0 Effacement (%): 90 Station: -2 Exam by: Carin. RESEARCH AND DEVELOPMENT MANAGER Membranes Rupture Method: Artificial Amniotic Fluid Color: Clear Amniotic Fluid Amount: Small Amniotic Fluid Odor: Normal Datetime: 10/13/2023 04:08 Epidural Procedure: Completed Epidural Procedure Other: Pump Started Datetime: 10/13/2023 03:41 PROCEDURE TIME OUT Procedure Verify: Correct Patient Identity; Correct Side and Site are Marked; Accurate Procedure Co nsent Form; Agreement on Procedure to be Done; Correct Patient Position; Relevant Images and Results are Properly Labeled and Displayed; Addressed Need to Administer Antibiotics or Fluids for Irrigation ; Safety Precautions Based on Patient History or Medication Use ANESTHESIA Anesthesia Plans: Epidural Datetime: 10/13/2023 03:30 Patient Care Comments: pt requests anesthesia for epidural , anesthesia notified Datetime: 10/13/2023 01:30 UTERINE ACTIVITY Monitor Mode: External Frequency (min): 1-4 Quality: Moderate Duration (sec): 40-70 Pattern: Normal: <= 5 Contractions in 10 Minutes Resting Tone (Palpate): Relaxed ASSESSMENT A Monitor Mode: Telemetry FHR Baseline Rate : 125 Variability: Moderate 6-25 bpm Accelerations: 15X15 Decelerations: None Category: Category I Datetime: 10/12/2023 18:40 Temperature (C): 36.8 Datetime: 10/12/2023 18:33 MEDICATIONS Cervical Ripening Agents: Cytotec @ Medication Comments: vaginally Datetime: 10/12/2023 17:55 I/O Interventions: Up to BR Datetime: 10/12/2023 17:35 Vaginal Bleeding: None Cervix, Consistency: Moderate Cervix, Position: Posterior PATIENT CARE IV/Blood Work: IV Started; Labs Drawn with IV Start Datetime: 08/17/2023 13:05 Communication Comments: up to bathroom Datetime: 08/17/2023 11:30 Contraction Comments: unable to trace Datetime: 08/17/2023 11:19 SpO2 (%): 99
== END 2023-10-14 12:30 | disposition home or self-care (01) | DRG 807 ==
LOC: WFO 16:58 → FBP 17:01 → WFO 18:29 → FBP 18:30 → OBSVTOIN 10-13 07:40
PROVIDERS: ADMIT Obstetrics & Gynecology; ATTEND Obstetrics & Gynecology
PROC: 10E0XZZ Delivery of Products of Conception, External Approach (ICD-10-PCS; principal; 2023-10-13)
PROC: 0KQM0ZZ Repair Perineum Muscle, Open Approach (ICD-10-PCS; 2023-10-13)
PROC: 3E0DXGC Introduction of Other Therapeutic Substance into Mouth and Pharynx, External Approach (ICD-10-PCS; 2023-10-13)
PROC: 10907ZC Drainage of Amniotic Fluid, Therapeutic from Products of Conception, Via Natural or Artificial Opening (ICD-10-PCS; 2023-10-13)
DX: O70.1 Second degree perineal laceration during delivery (principal); Z37.0 Single live birth; Z3A.39 39 weeks gestation of pregnancy
CPT/HCPCS: 36415; 59409; 85025; 86850; 86900; 86901; A9270; J7120; 96361; 96374; G0378